=== PATIENT | female | born 2000 | race Caucasian/White ===

== ENCOUNTER 2021-12-16 01:41 | Emergency (ER) | payer BC ==
[~2021-12-16] VITALS: Ht 177.8 cm; Wt 59.0 kg
[2021-12-16 01:41] VITALS: BP 100/60
--- NOTE | 2021-12-16 01:42 | NUR ---
Dr. Ruggiero examining patient.
[2021-12-16] MEDS ORDERED: ONDANSETRON 4 MG/2 ML VIAL IVP ONE (01:45)
[2021-12-16] MEDS ORDERED: NACL 0.9% 1,000 ML IV ONE (01:45)
--- NOTE | 2021-12-16 01:46 | NUR ---
PT [facility]. TAKEN TO BED 3
--- NOTE | 2021-12-16 02:11 | NUR ---
Spoke with patient 's roommate, She will pickling grader her when patient will release from hospital, phone [phone].
[2021-12-16] MEDS ORDERED: ONDA-188 PO (02:15)
--- NOTE | 2021-12-16 02:49 | NUR ---
21YR OLD FEMALE BIB EMS C/O ETOH WITH VOMITING. PT IS FROM THE [facility]. PER EMS, ROOMMATES CALLED 911 FOR PT , WAS VOMITING WHILE ASLEEP. PT ON BEDSIDE CUSTOMER COUNTER REPRESENTATIVE. SP02 100% RA. PT IS A&OX1 IS ACTIVELY VOMITING. HOB ELEVATED. BED AT LOWEST LEVEL. SIDE RAILS UP X2. UNKNOWN UNKNOWN
[2021-12-16 05:03] VITALS: BP 109/53
--- NOTE | 2021-12-16 05:46 | NUR ---
Patient discharged with v/s stable. Written and verbal after care instructions given and explained. Patient verbalized understanding. Ambulatory with steady gait. All questions addressed prior to discharge. Advised to follow up with PMD.
--- NOTE | 2021-12-16 05:46 | NUR ---
Chart checked and completed.
== END 2021-12-16 05:46 | disposition home or self-care (01) ==
LOC: MED 01:41 → EDBD 01:41 → MED 05:46
DX: F10.129 Alcohol abuse with intoxication, unspecified (principal); R11.10 Vomiting, unspecified; Z79.899 Other long term (current) drug therapy; Z98.890 Other specified postprocedural states
CPT/HCPCS: 96361; 96374; 99285; J2405